=== PATIENT | female | born 2000 | race Caucasian/White ===

== ENCOUNTER 2021-07-23 04:49 | Emergency (ER) | payer BC, SELFPAY ==
--- NOTE | ~2021-07-23 | CT_ITS ---
EXAMINATION: CT HEAD WITHOUT CONTRAST CLINICAL INFORMATION: Headache COMPARISON: None TECHNIQUE: Contiguous axial imaging was performed from the skull base to vertex without intravenous administration of contrast. This CT examination was performed using dose optimization techniques as appropriate, variously including the following: *Automated exposure control *Adjustment of mA and/or kV according to patient size (this includes techniques or standardized protocols for targeted exams where dose is matched to indication/reason for exam; i.e. extremities or head) *Use of iterative reconstruction technique DLP: 670 mGy-cm FINDINGS: There is no evidence of acute intracranial hemorrhage or territorial infarction. No abnormal mass effect or midline shift is seen. Champagne to white matter differentiation is well preserved. No extra-axial fluid collections are identified. The ventricles are normal in size. There is no abnormal attenuation within the brain parenchyma. The osseous structures and soft tissues are normal. The mastoid air cells and visualized portions of the paranasal sinuses are well aerated. CT/CT head/brain wo con IMPRESSION: No acute intracranial pathology.
--- NOTE | ~2021-07-23 | XR_ITS ---
EXAMINATION: XR CHEST CLINICAL INFORMATION: Headache COMPARISON: None TECHNIQUE: Frontal view of the chest was obtained. FINDINGS: Normal symmetric lung volumes. No parenchymal consolidation. No pleural effusion. No pneumothorax. Cardiomediastinal silhouette and pulmonary vascularity are within normal limits. No acute osseous abnormalities. XR/XR chest 1V IMPRESSION: No acute findings.
[2021-07-23 05:00] VITALS: BP 119/68; PULSE 116; RESP 18; TEMP 36.6; O2SAT 98; BMI 30.9
--- NOTE | 2021-07-23 05:48 | ECG_ITS ---
Test Reason : VOMITING/NAUSEA Blood Pressure : / mmHG Vent. Rate : 099 BPM Atrial Rate : 099 BPM P-R Int : 134 ms QRS Dur : 082 ms QT Int : 352 ms P-R-T Axes : 041 012 007 degrees QTc Int : 451 ms Normal sinus rhythm Minimal voltage criteria for LVH, may be normal variant ( R in aVL ) Borderline ECG No previous ECGs available Referred By: Lynette Garrett Electronically Signed By:PAIGE BURKS MD
[2021-07-23 06:00] VITALS: BP 125/87; PULSE 120; RESP 15; O2SAT 100
--- NOTE | 2021-07-23 06:11 | ED_ITS ---
HPI - General Adult General Chief complaint: Eye Problems Stated complaint: eyes burning & swollen shut since 02:00am; vomit Time Seen by Provider: 07/23/21 05:47 Source: patient and family ( mother) Mode of arrival: ambulatory Limitations: no limitations History of Present Illness HPI narrative: 20 years old female came in for evaluation of bilateral eye pain, photophobia, vomiting, headache. This is 20 years old female with past history of mast cell activation syndrome presented with her mother patient has been stressed and anxious about moving out patient went to bed last night upset with chest pain patient felt like gas in the epigastric area, woke u in the middle of the night vomiting, patient started to feel bilateral eye pain and the light bother her eyes, associated with frontal headache described as severe 10/10, patient had multiple episodes of vomiting, patient declined any fever or chills. never had this symptoms in the past. Mother confirmed no family history of cerebral bleeding or aneurysm or tumor. Patient declined chest pain now, no abdominal pain. Related Data Home Medications Medication Instructions Recorded Confirmed norgestimate-ethinyl estradiol 1 tab PO DAILY 07/23/21 07/23/21 0.18 mg/0.215mg/0.25mg-35 mcg(28)tablet (Tri-Estarylla) Allergies Allergy/AdvReac Type Severity Reaction Status Date / Time peanut Allergy Angioedema Verified 07/23/21 05:24 tree nut Allergy Angioedema Verified 07/23/21 05:24 Review of Systems Review of Systems: all other systems are reviewed and are negative Constitutional: Reports as per HPI and Reports no additional constitutional comp laints Eyes: Reports as per HPI and Reports no additional eye complaints Reports system reviewed and no additional complaints, except as documented Cardiovascular: Reports as per HPI and Reports no additional cardiovascular complaints Respiratory: Reports as per HPI and Reports no additional respiratory complaints Gastrointestinal: Reports as per HPI and Reports no additional gastrointestinal complaints Genitourinary: Reports no additional female genitourinary complaints Musculoskeletal: Reports no additional musculoskeletal complaints Skin/Breast: Reports system reviewed and no additional complaints, except as docu Psychiatric: Reports no additional psychiatric complaints Endocrine: Reports no additional endocrine complaints Hematologic/Lymphatic: Reports no additional hematologic/lymphatic complaints Allergic/Immunologic: Reports no additional allergic/immunologic complaints Reports system reviewed and no additional complaints, except as documented and Reports Abnormal speech present [facility] Past Medical History Medical History (Updated 07/23/21 @ 06:23 by Lynette Garrett MD) Mast cell activation syndrome Social History Social History Patient Tobacco Use Status: Never used Tobacco Use of substances other than those prescribed or required for medical reasons: No Advance Directives: No Patient : No Physical Exam ED Vital Signs: Vital Signs - 24 hr 07/23/21 05:00 Temperature 97.9 F Pulse Rate 116 H Respiratory Rate 18 Blood Pressure 119/68 Pulse Oximetry 98 BMI result Body Mass Index 30.9 vital signs have been reviewed as appeared to be correct. Blood pressure normal. Heart rate elevated. Respiration rate normal. Temperature normal. Oxygen saturation normal. Appearance: Alert. Oriented X3. No acute distress. Head: Normal external exam. Normocephalic. Atraumatic. No Hatch signs noted. No raccoon eyes noted Eyes: PERRLA. EOMI. Conjunctiva and sclera mildly injected,. Eyelids normal. ENT: TM's Normal. Pharynx normal. Uvula midline. Moist mucous membranes. No trismus noted. No drooling noted. No muffled voice noted. Neck: Normal inspection. Neck supple. FROM. No adenopathy. Thyroid Normal. No meningeal signs. No neck mass noted. CVS: Normal heart rate and rhythm. Heart sound normal. No murmurs noted. Pulses normal throughout. Respiratory: No respiratory distress. Painless inspiration. Breath sounds normal. No wheezes/rales/rhonchi noted. Chest nontender. No accessory muscle usage noted or decreased air movement noted. Abdomen: Soft and nontender. Bowel sounds normal in all 4 quadrants. No distention noted. No organomegaly noted. No visible injury noted. Back: No CVA tenderness. Full range of motion noted. Skin: Skin warm and dry. Normal skin color. Normal skin turgor. No rashes/lesions/lacerations noted. Extremities: No lower extremity edema. Extremities exhibit normal range of motion. Extremities nontender. Neuro: Oriented X 3. Cranial nerve exam: II-XII are grossly intact No motor deficit. No sensory deficit. Reflexes normal. Course Course Course Narrative: 20-year-old female with mast cell activation syndrome history, came in with eye pain followed by headache and several vomiting. Patient also been going through stressful event of moving out of her parent's house. Consider treating symptoms with IV fluids/Zofran/ Benadryl, check the blood workup UA, head CT. Case signed out to Dr. Eugene for workup follow-up and disposition accordingly. Discharge Plan Discharge Clinical Impression: Headache Prescriptions: No Action norgestimate-ethinyl estradiol [Tri-Estarylla] 0.18/0.215/0.25 mg-35 mcg (28) tablet 1 tab PO DAILY 0RF
[2021-07-23 06:23] LABS: MANUAL DIFF FLAG NO
[2021-07-23] MEDS: 0.9 % Sodium Chloride 1,000 ML 999 ML IV (06:24)
[2021-07-23] MEDS: ondansetron HCL 4 MG/2 ML VIAL IVPUSH (06:24)
[2021-07-23] MEDS: diphenhydrAMINE HCL 50 MG/ML VIAL 25 MG IVPUSH (06:24)
[2021-07-23 06:26] LABS: Basophils Percent Auto 0.2 % (0-2); Eosinophils Absolute Auto 0.1 X10*3/uL (0.0-0.4); Eosinophils Percent Auto 0.4 % (0-4); Hematocrit 41.9 % (37.0-47.0); Imm Gran Abs Auto 0.05 X10*3/uL (0.00-0.03); Imm Gran Pct Auto 0.4 % (0.0-0.4); Lymphocytes Absolute Auto 1.2 X10*3/uL (1.2-4.9); Lymphocytes Percent Auto 9.1 % (20-40); Mean Corpuscular HGB Conc 33.4 g/dl (31.0-35.0); Mean Corpuscular Hemoglobin 29.8 pg (27.0-33.0); Mean Corpuscular Volume 89.1 fL (80.0-98.0); Mean Platelet Volume 9.4 fL (9.4-12.3); Monocytes Absolute Auto 0.5 X10*3/uL (0.1-1.2); Monocytes Percent Auto 3.5 % (2-11); Neutrophils Absolute Auto 11.1 x10*3/uL (2.0-8.3); Neutrophils Percent Auto 86.4 % (45-73); Platelet Count 229 X10*3/uL (160-400); Red Cell Distribution Width 11.9 % (11.0-16.0); White Blood Count 12.9 X10*3/uL (4.8-10.8)
[2021-07-23 06:45] LABS: Troponin-I High Sensitivity < 3.5 ng/L (<3.5-17.0)
[2021-07-23 06:48] LABS: Alanine Aminotransferase 14 U/L (0-31); Albumin Level 4.3 g/dL (3.5-5.0); Alkaline Phosphatase 95 U/L (39-117); Anion Gap 14 (12-20); Aspartate Amino Transferase 17 U/L (5-31); Bilirubin Direct < 0.2 mg/dL (0.0-0.5); Bilirubin Total 0.3 mg/dL (0.0-1.0); Blood Urea Nitrogen 13 mg/dL (9-16); Calcium 9.6 mg/dL (8.4-10.2); Carbon Dioxide 23 mmol/L (22-29); Chloride 107 mmol/L (96-108); Creatinine Clr Calc Pharmacy 112.5; Estimated Glomerular Filt Rate > 60; Glucose Random 129 mg/dL (60-115); Lipase 29 U/L (8-78); Potassium 4.5 mmol/L (3.3-5.1); Sodium 139 mmol/L (135-145); Total Protein 7.5 g/dL (6.5-8.0)
[2021-07-23 07:10] LABS: COVID-19 Test Negative (Negative)
[2021-07-23 07:30] VITALS: BP 127/81; PULSE 92; RESP 17; TEMP 36.8; O2SAT 100
--- NOTE | 2021-07-23 08:43 | PC.NURSE ---
pt states that donna eyes are sensitive to light and she is unable to open her eyes. pt has shades on her face.
[2021-07-23] MEDS: Ketorolac Tromethamine 30 MG/ML VIAL IVPUSH (08:57)
[2021-07-23] MEDS: Famotidine/PF 20 MG/2 ML VIAL IVPUSH (08:58)
[2021-07-23 09:24] LABS: Appearance Urine CLEAR; Color Urine STRAW; Glucose Urine UA NEG (NEG); Leukocyte Esterase Urine NEG (NEG); Nitrite Urine NEG (NEG); PH 5.5 (5.0-8.0); Specific Gravity - Urine 1.015 (1.005-1.025); UACC Culture Trigger NO; Urine Blood TRACE (NEG); Urine Ketones NEG (NEG); Urine Protein NEG (NEG-TRACE)
[2021-07-23 09:34] VITALS: BP 124/76; PULSE 91; RESP 14; O2SAT 98
[2021-07-23 09:34] LABS: Squamous Epithelial Cell Urine 1+ /LPF
== END 2021-07-23 09:52 | disposition home or self-care (01) ==
PROVIDERS: Emergency Provider Emergency Medicine; PCP Family Medicine
DX: H57.13 Ocular pain, bilateral (principal); R51.9 Headache, unspecified; Z20.822 Contact with and (suspected) exposure to COVID-19; Z79.899 Other long term (current) drug therapy
CPT/HCPCS: 36415; 70450; 71045; 80048; 80076; 81001; 83690; 84484; 85025; 87635; 93005; 96361; 96374; 96375; 99284; 99285; J1200; J1885; J2405